=== PATIENT | male | born 1945 | race Caucasian/White ===

== ENCOUNTER 2016-07-14 10:15 | Inpatient (IN) | payer OTHER, MEDICARE ==
[~2016-07-14 10:15] MED LIST: ASPIRIN EC81 MG PO; LEVOTHYROXINE50 MC3 PO; LOPERAMIDE2 M2 PO; LOPRESSOR50 M1 PO; PROTONIX40 M2 PO; SIMETHICONE80 M3 CH; SYMBICORT 80-41 PUFF INH; ZOFRAN8 M1 PO
[2016-07-14 10:28] LABS: HCT-HEMATOCRIT 32.8 % (36.0-53.5); HGB-HEMOGLOBIN 10.6 gm/dl (13.5-17.0); MCH (MEAN CORPUSCULAR HGB) 30.6 pg (28.0-32.0); MCHC MEAN CORPUSCULAR HGB CONC 32.3 % (32.0-36.0); MCV (MEAN CELL VOLUME) 94.8 fl (82.0-96.0); MEAN PLATELET VOLUME 11.6 cmc (9.4-12.4); NEUTROPHIL-AUTOMATED 3.2 tho/cmm (1.6-8.0); PLATELET COUNT 242 tho/cmm (150-450); RED BLOOD COUNT 3.46 mil/cmm (4.40-5.70); RED CELL DISTRIBUTION WIDTH 14.8 % (12.4-16.4); WHITE BLOOD COUNT 4.8 tho/cmm (4.0-10.0)
[2016-07-14 10:42] LABS: ALB/GLOB RATIO 1.3 (0.8-2.0); ALBUMIN 2.6 g/dl (3.5-5.2); ALKALINE PHOSPHATASE 145 U/L (40-129); ALT/SGPT 17 U/L (0-41); ANION GAP 11 mmol/L (5-15); AST/SGOT 21 U/L (0-40); BILIRUBIN,TOTAL 0.2 mg/dl (0.0-1.0); BLOOD UREA NITROGEN 13 mg/dl (6-25); CALCIUM 8.6 mg/dl (8.6-10.2); CARBON DIOXIDE-VENOUS 25 mmol/L (22-29); CHLORIDE 101 mmol/L (98-110); CREATININE 1.15 mg/dl (0.67-1.17); GLUCOSE 119 mg/dl (65-120); POTASSIUM 4.3 mmol/L (3.4-5.0); SODIUM 137 mmol/L (135-146); eGFR VALUE FOR BLACK >60 mL/Min
[2016-07-14 11:25] LABS: URINE BILIRUBIN NEGATIVE (NEG); URINE BLOOD NEGATIVE (NEG); URINE GLUCOSE (UA) NEGATIVE (NEG); URINE KETONE SMALL (NEG); URINE LEUKOCYTE ESTERASE NEGATIVE (NEG); URINE NITRITE NEGATIVE (NEG)
[2016-07-14 11:27] LABS: URINE APPEARANCE CLEAR; URINE COLOR YELLOW; URINE SPECIFIC GRAVITY 1.022 (1.003-1.030)
[2016-07-14 11:32] LABS: URINE PROT SULFOSALICYLIC ACID NEGATIVE (NEG)
[2016-07-14 11:34] LABS: URINE RBC 0-2 /[HPF] (0-5); URINE WBC 0-3 /[HPF] (0-5)
[2016-07-14 11:35] LABS: URINE MUCUS 3+
[2016-07-14] MEDS ORDERED: VENTOLIN HFA18 G2 INH (11:43)
[2016-07-14] MEDS ORDERED: DEXAMETHASONE4 M1 PO (11:44)
[2016-07-14] MEDS ORDERED: [UNRECOGNIZED DRUG - OTHER] IV (11:45)
[2016-07-14 11:46] LABS: BAND % 14 % (0-20); BAND ABSOLUTE COUNT 0.7 tho/cmm (0-2.0); EOSINOPHIL % 3 % (0-7)
[2016-07-15 05:50] LABS: BASO % 0.2 % (0-2); HCT-HEMATOCRIT 30.4 % (36.0-53.5); HGB-HEMOGLOBIN 9.7 gm/dl (13.5-17.0); IMMATURE GRANULOCYTES ABSOLUTE 0.03 tho/cmm (0-0.03); IMMATURE GRANULOCYTES PERCENT 0.6 % (0-0.3); LYMPH % 39.7 % (20-45); MCH (MEAN CORPUSCULAR HGB) 30.2 pg (28.0-32.0); MCHC MEAN CORPUSCULAR HGB CONC 31.9 % (32.0-36.0); MCV (MEAN CELL VOLUME) 94.7 fl (82.0-96.0); MEAN PLATELET VOLUME 11.2 cmc (9.4-12.4); MONOCYTE ABSOLUTE COUNT 0.7 tho/cmm (0.0-1.2); NEUTROPHIL ABSOLUTE COUNT 2.3 tho/cmm (1.6-8.0); NEUTROPHIL-AUTOMATED 2.3 tho/cmm (1.6-8.0); NEUTROPHILS % 45.5 % (40-80); PLATELET COUNT 213 tho/cmm (150-450); RED BLOOD COUNT 3.21 mil/cmm (4.40-5.70); RED CELL DISTRIBUTION WIDTH 14.9 % (12.4-16.4); WHITE BLOOD COUNT 5.1 tho/cmm (4.0-10.0)
[2016-07-15 06:02] LABS: ANION GAP 10 mmol/L (5-15); BLOOD UREA NITROGEN 11 mg/dl (6-25); CALCIUM 7.7 mg/dl (8.6-10.2); CARBON DIOXIDE-VENOUS 25 mmol/L (22-29); CHLORIDE 105 mmol/L (98-110); CREATININE 1.28 mg/dl (0.67-1.17); GLUCOSE 87 mg/dl (65-120); POTASSIUM 3.7 mmol/L (3.4-5.0); SODIUM 140 mmol/L (135-146); eGFR VALUE FOR BLACK >60 mL/Min
[2016-07-16 05:53] LABS: PLATELET COUNT 216 tho/cmm (150-450)
[2016-07-16 16:22] LABS: ANION GAP 9 mmol/L (5-15); BLOOD UREA NITROGEN 7 mg/dl (6-25); CALCIUM 7.5 mg/dl (8.6-10.2); CARBON DIOXIDE-VENOUS 27 mmol/L (22-29); CHLORIDE 102 mmol/L (98-110); CREATININE 1.09 mg/dl (0.67-1.17); GLUCOSE 106 mg/dl (65-120); POTASSIUM 3.7 mmol/L (3.4-5.0); SODIUM 138 mmol/L (135-146); eGFR VALUE FOR BLACK >60 mL/Min
[2016-07-16 17:18] LABS: BASO % 0.3 % (0-2); HCT-HEMATOCRIT 30.1 % (36.0-53.5); HGB-HEMOGLOBIN 9.7 gm/dl (13.5-17.0); IMMATURE GRANULOCYTES ABSOLUTE 0.06 tho/cmm (0-0.03); IMMATURE GRANULOCYTES PERCENT 1.6 % (0-0.3); LYMPH % 24.9 % (20-45); MCH (MEAN CORPUSCULAR HGB) 29.9 pg (28.0-32.0); MCHC MEAN CORPUSCULAR HGB CONC 32.2 % (32.0-36.0); MCV (MEAN CELL VOLUME) 92.9 fl (82.0-96.0); MEAN PLATELET VOLUME 10.8 cmc (9.4-12.4); MONOCYTE ABSOLUTE COUNT 0.4 tho/cmm (0.0-1.2); NEUTROPHIL ABSOLUTE COUNT 2.4 tho/cmm (1.6-8.0); NEUTROPHIL-AUTOMATED 2.4 tho/cmm (1.6-8.0); NEUTROPHILS % 63.2 % (40-80); PLATELET COUNT 211 tho/cmm (150-450); RED BLOOD COUNT 3.24 mil/cmm (4.40-5.70); RED CELL DISTRIBUTION WIDTH 14.9 % (12.4-16.4); WHITE BLOOD COUNT 3.8 tho/cmm (4.0-10.0)
[2016-07-16 18:14] LABS: PROCALCITONIN 0.24 ng/ml (0.05-0.09)
[2016-07-17 06:09] LABS: HCT-HEMATOCRIT 32.5 % (36.0-53.5); HGB-HEMOGLOBIN 10.3 gm/dl (13.5-17.0); IMMATURE GRANULOCYTES ABSOLUTE 0.07 tho/cmm (0-0.03); IMMATURE GRANULOCYTES PERCENT 3.1 % (0-0.3); LYMPH % 30.1 % (20-45); LYMPH ABSOLUTE COUNT 0.7 tho/cmm (0.8-4.5); MCH (MEAN CORPUSCULAR HGB) 29.9 pg (28.0-32.0); MCHC MEAN CORPUSCULAR HGB CONC 31.7 % (32.0-36.0); MCV (MEAN CELL VOLUME) 94.2 fl (82.0-96.0); MEAN PLATELET VOLUME 11.3 cmc (9.4-12.4); MONOCYTE ABSOLUTE COUNT 0.1 tho/cmm (0.0-1.2); NEUTROPHIL ABSOLUTE COUNT 1.4 tho/cmm (1.6-8.0); NEUTROPHIL-AUTOMATED 1.4 tho/cmm (1.6-8.0); NEUTROPHILS % 62.8 % (40-80); PLATELET COUNT 212 tho/cmm (150-450); RED BLOOD COUNT 3.45 mil/cmm (4.40-5.70); RED CELL DISTRIBUTION WIDTH 15.1 % (12.4-16.4); WHITE BLOOD COUNT 2.3 tho/cmm (4.0-10.0)
[2016-07-18 04:38] LABS: HGB-HEMOGLOBIN 10.2 gm/dl (13.5-17.0); PLATELET COUNT 249 tho/cmm (150-450)
[2016-07-18] MEDS ORDERED: LEVAQUIN750 M1 PO (11:26)
[2016-07-18] MEDS ORDERED: TYLENOL325 M2 PO (11:27)
[2016-07-18] MEDS ORDERED: CORTISONE28 GM TOP (11:29)
== END 2016-07-18 12:10 | disposition home health service (06) | DRG 194 ==
LOC: EDMED 10:15 → EMR2 13:23 → 5WE 16:15
PROVIDERS: Emergency Medicine; Nurse Practitioner; Registered Nurse; ADMIT Hospitalist
PROC: 3E0F7GC Introduction of Other Therapeutic Substance into Respiratory Tract, Via Natural or Artificial Opening (ICD-10-PCS; principal; 2016-07-14)
DX: J18.1 Lobar pneumonia, unspecified organism (principal); C18.9 Malignant neoplasm of colon, unspecified; N17.9 Acute kidney failure, unspecified; C78.7 Secondary malignant neoplasm of liver and intrahepatic bile duct; J43.9 Emphysema, unspecified; E03.9 Hypothyroidism, unspecified; I10 Essential (primary) hypertension; K21.9 Gastro-esophageal reflux disease without esophagitis; L27.0 Generalized skin eruption due to drugs and medicaments taken internally; T45.1X5A Adverse effect of antineoplastic and immunosuppressive drugs, initial encounter; R74.0 Nonspecific elevation of levels of transaminase and lactic acid dehydrogenase [LDH]
CPT/HCPCS: J0456; J1650; J1956; J2543; J7030; J7050; J7512

== ENCOUNTER 2016-09-29 12:27 | Emergency (ER) | payer OTHER, MEDICARE ==
[~2016-09-29 12:27] MED LIST changes: +CORTISONE28 GM TOP; +DEXAMETHASONE4 M1 PO; +LEVAQUIN750 M1 PO; +TYLENOL325 M2 PO; +VENTOLIN HFA18 G2 INH; +[UNRECOGNIZED DRUG - OTHER] IV
[2016-09-29 13:04] LABS: BASO % 0.3 % (0-2); EOS % 1.7 % (0-7); EOSINOPHIL ABSOLUTE COUNT 0.1 tho/cmm (0.0-0.7); HCT-HEMATOCRIT 30.7 % (36.0-53.5); HGB-HEMOGLOBIN 9.7 gm/dl (13.5-17.0); IMMATURE GRANULOCYTES ABSOLUTE 0.01 tho/cmm (0-0.03); IMMATURE GRANULOCYTES PERCENT 0.3 % (0-0.3); LYMPH % 26.4 % (20-45); LYMPH ABSOLUTE COUNT 0.8 tho/cmm (0.8-4.5); MCH (MEAN CORPUSCULAR HGB) 25.1 pg (28.0-32.0); MCHC MEAN CORPUSCULAR HGB CONC 31.6 % (32.0-36.0); MCV (MEAN CELL VOLUME) 79.3 fl (82.0-96.0); MEAN PLATELET VOLUME 10.7 cmc (9.4-12.4); MONO % 12.7 % (0-12); MONOCYTE ABSOLUTE COUNT 0.4 tho/cmm (0.0-1.2); NEUTROPHIL ABSOLUTE COUNT 1.8 tho/cmm (1.6-8.0); NEUTROPHIL-AUTOMATED 1.8 tho/cmm (1.6-8.0); NEUTROPHILS % 58.6 % (40-80); PLATELET COUNT 147 tho/cmm (150-450); RED BLOOD COUNT 3.87 mil/cmm (4.40-5.70); RED CELL DISTRIBUTION WIDTH 15.4 % (12.4-16.4)
[2016-09-29] MEDS ORDERED: DICYCLOMINE HCL20 M1 PO (13:07)
[2016-09-29] MEDS ORDERED: PROBIOTIC1 EAC6 PO (13:08)
[2016-09-29 13:40] LABS: ALB/GLOB RATIO 0.8 (0.8-2.0); ALBUMIN 2.4 g/dl (3.5-5.0); ALKALINE PHOSPHATASE 101 U/L (33-138); ALT/SGPT 16 U/L (12-78); ANION GAP 12 mmol/L (0-20); AST/SGOT 19 U/L (10-40); BILIRUBIN,TOTAL 0.3 mg/dl (0.0-1.5); BLOOD UREA NITROGEN 10 mg/dl (6-24); CALCIUM 7.9 mg/dl (8.5-10.5); CARBON DIOXIDE-VENOUS 23 mmol/L (22-32); CHLORIDE 105 mmol/l (96-110); CREATININE 1.13 mg/dl (0.60-1.30); GLUCOSE 93 mg/dL (70-110); POTASSIUM 3.4 mmol/L (3.7-5.1); SODIUM 137 mmol/L (135-145); eGFR VALUE FOR BLACK 75 mL/Min
[2016-09-29 13:46] LABS: PROCALCITONIN 0.14 ng/ml (0.05-0.09)
[2016-09-29] MEDS ORDERED: ZOFRAN8 M1 PO (14:22)
[2016-09-29] MEDS ORDERED: DEXAMETHASONE4 M1 PO (14:22)
[2016-09-29] MEDS ORDERED: IRINOTECAN100 MG/5 M IV (14:26)
[2016-09-29] MEDS ORDERED: LEUCOVORIN CAL200 MG IV (14:27)
[2016-09-29] MEDS ORDERED: AVASTIN100 MG/4 M IV (14:29)
[2016-09-29] MEDS ORDERED: FLUOROURAC500 MG/10 IV (14:31)
[2016-09-29] MEDS ORDERED: FLUOROURACIL IV (14:34)
[2016-09-29] MEDS ORDERED: LEVAQUIN500 M1 PO (14:40)
== END 2016-09-29 15:04 ==
LOC: EDMED 12:27
PROVIDERS: Emergency Medicine
DX: J18.9 Pneumonia, unspecified organism (principal); J44.9 Chronic obstructive pulmonary disease, unspecified; C18.9 Malignant neoplasm of colon, unspecified; C78.7 Secondary malignant neoplasm of liver and intrahepatic bile duct; I25.2 Old myocardial infarction; I10 Essential (primary) hypertension; E03.9 Hypothyroidism, unspecified; K21.9 Gastro-esophageal reflux disease without esophagitis; Z87.891 Personal history of nicotine dependence; Z79.51 Long term (current) use of inhaled steroids; Z79.82 Long term (current) use of aspirin; Z79.890 Hormone replacement therapy; Z79.899 Other long term (current) drug therapy
CPT/HCPCS: J7030